=== PATIENT | male | born 1960 | race Caucasian/White ===

== ENCOUNTER → 2020-01-02 | Outpatient (CLI) | payer MEDICAID ==
[~2020-01-02] MED LIST: CARAFATE 1 GM TA1 G1 PO; KEFLEX500 MG PO; PROTONIX40 M1 PO; SANTYL OINTMENT30 G1 TOP
[2020-01-02 10:37] LABS: HEMATOCRIT 36.3 % (42.0-52.0); MCH 27.7 pg (26.0-34.0); MCV 83.9 fL (80.0-100.0); MPV 8.4 fl. (7.2-11.1); RBC 4.33 mil/uL (4.50-6.00); WBC 7.1 thou/uL (4.0-11.0)
[2020-01-02 10:49] LABS: ALBUMIN 3.1 g/dL (3.4-5.0); CALCIUM 8.6 mg/dL (8.5-10.1); CREATININE 0.7 mg/dL (0.6-1.3); POTASSIUM 3.7 mmol/L (3.5-5.1); TOTAL BILIRUBIN 0.4 mg/dL (<0.1-1.0); TOTAL PROTEIN 8.2 g/dL (6.4-8.2)
[2020-01-03 03:06] LABS: GLYCOHEMOGLOBIN (HGB A1C) 5.1 % (4.8-5.6)
== END ==
LOC: M.WC 09:00
PROVIDERS: ATTEND Family Medicine
DX: I87.332 Chronic venous hypertension (idiopathic) with ulcer and inflammation of left lower extremity (principal); L97.822 Non-pressure chronic ulcer of other part of left lower leg with fat layer exposed; S72.092D Other fracture of head and neck of left femur, subsequent encounter for closed fracture with routine healing; I89.0 Lymphedema, not elsewhere classified; G11.4 Hereditary spastic paraplegia; M16.12 Unilateral primary osteoarthritis, left hip; Z79.899 Other long term (current) drug therapy; X58.XXXD Exposure to other specified factors, subsequent encounter